=== PATIENT | male | born 1960 | race Caucasian/White ===

== ENCOUNTER 2016-12-29 08:16 | Emergency (ER) | payer BC ==
--- NOTE | 2016-12-29 08:37 | ERNOTE ---
Lower Extremity HPI - General Lower Extremities Pain: knee: right Time Seen by Provider: 12/29/16 08:30 Source: patient Exam Limitations: no limitations - Immun/Allergies/Home Medications Immunizations: IMMUNIZATION HX Immunizations Up to Date Yes History of Influenza Vaccine No Hx Pneumococcal Vaccination No Allergies/Adverse Reactions: Allergies Allergy/AdvReac Type Severity Reaction Status Date / Time No Known Allergies Allergy Verified 12/29/16 08:23 Home Medications: HOME MEDICATIONS Diphenhydramine HCl [Sleep Aid] 25 mg PO HS 12/29/16 [Last Taken Unknown] Naproxen [Naprosyn] 500 mg PO BID #60 tablet 12/29/16 [Last Taken Unknown] - History of Present Illness Narrative: 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 Patient denies any significant pain at this time however. Occurred: last week Location of Incident: home Method of Injury: Reports: direct blow Loss of Consciousness: Reports: no loss of consciousness Other Injuries: Reports: none Review of Systems - Review of Systems Constitutional: Present: See HPI EYE: Present: no symptoms reported ENT: Present: no symptoms reported Respiratory: Present: no symptoms reported Cardiology: Present: no symptoms reported Gastrointestinal/Abdominal: Present: no symptoms reported Genitourinary: Present: no symptoms reported Musculoskeletal: Present: See HPI, joint swelling Skin: Present: no symptoms reported Neurological: Present: no symptoms reported Endocrine: Present: no symptoms reported Hematologic/Lymphatic: Present: no symptoms reported Psych: Present: no symptoms reported - Patient's Past Medical History Patient History - Medical: No pertinent hx Patient History - Cardiac/Respiratory: Asthma Patient History - Cancer: No Hx of Cancer Patient History - Surgical Procedures: No surgical history Patient History - Other: None - Social History Living Situations: home Psych History: No pertinent hx Smoking Status: Never smoker Have you smoked in the past 12 months: No Do you dip or chew tobacco: No Alcohol Use: rarely Drug Use: none - Immunizations Immunizations Up to Date: Yes Hx Pneumococcal Vaccination: No History of Influenza Vaccine: No Physical Exam - Physical Exam General Appearance: Present: wd/wn, alert, mild distress Head Exam: Present: normal inspection, no evidence of injury Eye Exam: Normal inspection: bilateral, PERRL: bilateral Ears, Nose, Throat: Present: normal ENT inspection, H, normal pharynx Neck: Present: normal inspection, nontender Respiratory: Present: no respiratory distress, normal breath sounds, no accessory muscle use, chest nontender, lungs clear Cardiovascular/Chest: Present: regular rate, rhythm, no murmur, normal peripheral pulses Gastrointestinal/Abdominal: Present: normal bowel sounds, nontender, nondistended, soft, no organomegaly Rectal Exam: Present: deferred Back Exam: Present: normal inspection, normal range of motion Extremity Exam: Present: normal range of motion, pedal edema - patient has considerable swelling around the right patella also. Inferior and lateral as well as some distal edema however reasonable to motion of the knee and only some pain present upon ballottement of the kneecap, extremity edema Neurological Exam: Present: alert, oriented, normal mood/affect Skin Exam: Present: normal color, warm/dry Lymphatic Exam: Present: no adenopathy ED Progress - Vital Signs Patient's Vital Signs:: I have reviewed the patient's vital signs. Vital Signs: Vital Signs 12/29/16 08:24 Temperature 36.7 C Pulse Rate 88 Respiratory 18 Rate Blood Pressure 134/74 O2 Sat by Pulse 94 Oximetry - X-Ray X-Ray #1 X-Ray: knee Interpretation: Reviewed by me - Progress/Reassessment Chief Complaint: Lower Extremity Pain/ Injury Plan - Plan Plan: I suspect that the patient has a component of traumatic bursitis with a considerable edema around the kneecap in the knee. The swelling in the lower extremity distal to the knee is most likely secondary to a little bit of lymph impingement from the edema around the knee. Patient will be referred to orthopedic surgery for possible aspiration and further management as needed. Departure Clinical Impression: Prepatellar bursitis of right knee - Departure Disposition: Home self-care Condition: Good Instructions: Prepatellar Bursitis With Rehab-SportsMed Referrals: Boaz Haque MD [Primary Care Provider] - Sid Reece PAC [[facility]] - Prescriptions: Naproxen [Naprosyn] 500 mg PO BID #60 tablet
[2016-12-29 11:48] VITALS: BP 130/85
== END 2016-12-29 09:15 | disposition home or self-care (01) ==
LOC: ER 08:16
DX: M70.41 Prepatellar bursitis, right knee (principal); Y93.89 Activity, other specified